=== PATIENT | female | born 1985 | race Caucasian/White ===

== ENCOUNTER 2019-05-30 09:03 | Emergency (ER) | payer OTHER ==
--- NOTE | 2019-05-30 09:26 | ED Physician Documentation ---
PD HPI FEMALE - Stated complaint Stated Complaint: 12 WKS/BLEEDING - Chief complaint Chief Complaint: General - History obtained from History obtained from: Patient - History of Present Illness Timing - onset: Today Timing - details: Abrupt onset, Still present (but tapering a lot) Associated symptoms: Vaginal bleeding (she states abrupt bleeding after urination. Was vaginal bleeding, about 1/2 cupful. No discharge.). 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 denies: Dysuria, Frequency, Discharge PD PAST MEDICAL HISTORY - Past Medical History Cardiovascular: None Respiratory: None Neuro: None Endocrine/Autoimmune: None - Allergies Allergies/Adverse Reactions: Allergies Allergy/AdvReac Type Severity Reaction Status Date / Time No Known Drug Allergies Allergy Verified 05/30/19 09:12 PD ED PE NORMAL - Vitals Vital signs reviewed: Yes - General General: Alert and oriented X 3, Well developed/nourished - Neck Neck: Supple, no meningeal sign, No adenopathy - Cardiac Cardiac: RRR, No murmur - Respiratory Respiratory: Clear bilaterally - Abdomen Abdomen: Soft, Non tender - Female Female : Deferred - Back Back: No CVA TTP - Derm Derm: Normal color, Warm and dry Results - Vitals Vitals: Vital Signs - 24 hr 05/30/19 05/30/19 09:09 10:10 Temperature 36.1 C L Heart Rate 58 L 57 L Respiratory 16 14 Rate Blood Pressure 136/62 H 106/62 O2 Saturation 100 100 Oxygen O2 Source Room air PD MEDICAL DECISION MAKING - ED course Complexity details: reviewed results (bedside U/S showing normal IUP with good FHR and normal amniotic fluid. cervix does not appear dilated. ), considered differential, d/w patient Departure - Departure Disposition: 01 Home, Self Care Clinical Impression: Vaginal bleeding affecting early Condition: Stable Record reviewed to determine appropriate education?: Yes Instructions: ED Bleed Irregular Vaginal Follow-Up: Jeremiah Rebolledo ARNP [Primary Care Provider] - Comments: Stay well-hydrated. Light activity today but you do not need to be bed rested. No vigorous activity no intercourse for couple of days. Tylenol if needed for mild cramps or pains. Episodes of bleeding in early are relatively common and usually are short and self-limited, for a day or so. Follow-up with your CONDITIONING COACH if persisting bleeding into tomorrow. Return if worse bleeding, significant pains, vomiting, fever, other concerns. Otherwise just touch base with your CONDITIONING COACH tomorrow to update them. Discharge Date/Time: 05/30/19 10:09
[2019-05-30 10:11] VITALS: BP 106/62
== END 2019-05-30 10:09 | disposition home or self-care (01) ==
LOC: ED 09:03
DX: O46.91 Antepartum hemorrhage, unspecified, first trimester (principal)
CPT/HCPCS: 99282; 99283